=== PATIENT | male | born 1970 | race Hispanic/Latino ===

== ENCOUNTER 2018-03-22 04:24 | Emergency (ER) | payer SELFPAY ==
[2018-03-22 04:56] VITALS: BP 165/96
[2018-03-22 05:21] LABS: Basophils # (Auto) 0.1 K/mm3 (0.0-0.1); Basophils % (Auto) 1.1 % (0.0-1.8); Eosinophils % (Auto) 0.2 % (0.0-4.3); Hematocrit 40.7 % (35.5-45.6); Hemoglobin 13.8 gm/dl (11.8-15.2); Lymphocytes % (Auto) 15.5 % (13.4-35.0); Mean Corpuscular HGB Conc 34 % (32-34); Mean Corpuscular Hemoglobin 33 pg (28-32); Mean Corpuscular Volume 98 fl (84-94); Monocytes # (Auto) 0.4 K/mm3 (0.0-0.8); Monocytes % (Auto) 6.5 % (0.0-7.3); Platelet Count 353 K/mm3 (140-440); Red Blood Count 4.16 M/mm3 (3.65-5.03); Red Cell Distribution Width 14.6 % (13.2-15.2)
[2018-03-22 05:36] LABS: BUN/Creatinine Ratio 17; Blood Urea Nitrogen 12 mg/dL (9-20); Calcium 9.4 mg/dL (8.4-10.2); Hemolysis Index 3
== END 2018-03-22 05:00 | disposition left against medical advice (07) ==
LOC: ED 04:24
DX: Z00.8 Encounter for other general examination (principal); Z53.21 Procedure and treatment not carried out due to patient leaving prior to being seen by health care provider
CPT/HCPCS: 36415; 80048; 85025; G0480; 80320

== ENCOUNTER 2018-05-04 08:19 | Emergency (ER) | payer SELFPAY | END 2018-05-04 08:47 | LOC: ED 08:19 | DX: F10.239 Alcohol dependence with withdrawal, unspecified (principal); Z53.21 Procedure and treatment not carried out due to patient leaving prior to being seen by health care provider ==

== ENCOUNTER 2018-10-05 00:55 | Emergency (ER) | payer OTHER ==
[2018-10-05] MEDS ORDERED: DECADRON IM ONE (04:05)
[2018-10-05] MEDS ORDERED: TYLENOL PO ONE (04:05)
--- NOTE | 2018-10-05 04:40 | Emergency Department Report ---
ED Lower Extremity HPI - General Chief Complaint: Back Pain/Injury Stated Complaint: OSTEOARTHRITIS PAIN Time Seen by Provider: 10/05/18 04:05 Source: patient Mode of arrival: Ambulatory Limitations: No Limitations - History of Present Illness Initial Comments: Patient is a 48-year-old white male with a history of osteoarthritis right hip patient presents for acute exacerbation of same tonight pain is 4/10 aching exacerbated with prolonged sitting standing and weightbearing patient has no sorry injury or trauma there is no swelling ecchymosis or deformity patient states he is out of pain medication is on when necessary any NSAIDs for pain patient denies numbness tingling no decreased bowel or bladder function MD Complaint: other (right hip pain acute on chronic ) Onset/Timin -: days(s) Injury: Hip: Right Type of Injury: blunt Place: home Severity: moderate Severity scale (0 -10): 4 Worsens With: weight bearing, movement, palpation Context: other (chronic hip pain ) Associated Symptoms: ambulatory. denies: swelling, numbness, tingling - Related Data Previous Rx's Medication Instructions Recorded Last Taken Type LORazepam [Ativan] 1 mg PO TID PRN #10 tablet 02/18/15 Unknown Rx Acetaminophen [Tylenol Extra 1,000 mg PO QID PRN #30 tablet 10/05/18 Unknown Rx Strength] Cyclobenzaprine [Flexeril] 10 mg PO TID PRN #30 tablet 10/05/18 Unknown Rx Menthol/Camphor [Stuart Buhl 1 applicatio TP QID PRN #1 tube 10/05/18 Unknown Rx Ointment] Allergies Allergy/AdvReac Type Severity Reaction Status Date / Time No Known Allergies Allergy Verified 10/20/14 18:56 ED Review of Systems ROS: Stated complaint: OSTEOARTHRITIS PAIN Other details as noted in HPI Constitutional: denies: chills, fever Eyes: denies: eye pain, eye discharge, vision change ENT: denies: ear pain, throat pain Respiratory: denies: cough, shortness of breath, wheezing Cardiovascular: denies: chest pain, palpitations Endocrine: no symptoms reported Gastrointestinal: denies: abdominal pain, nausea, diarrhea Genitourinary: denies: urgency, dysuria Musculoskeletal: arthralgia (right hip ) Skin: denies: rash, lesions Neurological: denies: headache, weakness, paresthesias Psychiatric: denies: anxiety, depression Hematological/Lymphatic: denies: easy bleeding, easy bruising ED Past Medical Hx - Past Medical History Previous Medical History?: Yes Hx Hypertension: Yes Hx Psychiatric Treatment: Yes (BIPOLAR, DEPRESSION) Additional medical history: DDD - Surgical History Past Surgical History?: Yes Hx Appendectomy: Yes (LAP.) - Social History Smoking Status: Current Every Day Smoker Substance Use Type: Alcohol - Medications Home Medications: Home Medications Medication Instructions Recorded Confirmed Last Taken Type LORazepam [Ativan] 1 mg PO TID PRN #10 tablet 02/18/15 Unknown Rx Acetaminophen [Tylenol Extra 1,000 mg PO QID PRN #30 tablet 10/05/18 Unknown Rx Strength] Cyclobenzaprine [Flexeril] 10 mg PO TID PRN #30 tablet 10/05/18 Unknown Rx Menthol/Camphor [Stuart Buhl 1 applicatio TP QID PRN #1 tube 10/05/18 Unknown Rx Ointment] ED Physical Exam - General Limitations: No Limitations General appearance: alert, in no apparent distress - Head Head exam: Present: atraumatic, normocephalic - Eye Eye exam: Present: normal appearance, PERRL, EOMI Pupils: Present: normal accommodation - ENT ENT exam: Present: normal exam, mucous membranes moist - Neck Neck exam: Present: normal inspection, full ROM. Absent: tenderness, lymphadenopathy, thyromegaly - Respiratory Respiratory exam: Present: normal lung sounds bilaterally. Absent: respiratory distress, wheezes, rhonchi, chest wall tenderness - Cardiovascular Cardiovascular Exam: Present: regular rate, normal rhythm, normal heart sounds. Absent: systolic murmur, diastolic murmur, rubs, gallop - GI/Abdominal GI/Abdominal exam: Present: soft, normal bowel sounds. Absent: distended, tenderness, rebound, bruit, hernia - Rectal Rectal exam: Present: deferred - Extremities Exam Extremities exam: Present: normal inspection, full ROM, tenderness (right hip wtih papotaio), normal capillary refill. Absent: pedal edema, joint swelling, other - Back Exam Back exam: Present: normal inspection, full ROM. Absent: tenderness, CVA tenderness (R), CVA tenderness (L) - Neurological Exam Neurological exam: Present: alert, oriented X3, CN II-XII intact, normal gait, reflexes normal. Absent: motor sensory deficit - Psychiatric Psychiatric exam: Present: normal affect, normal mood - Skin Skin exam: Present: warm, dry, intact, normal color. Absent: rash ED Course Vital Signs 10/05/18 00:57 Temperature 97.4 F L Pulse Rate 102 H Respiratory 18 Rate Blood Pressure 147/71 O2 Sat by Pulse 98 Oximetry ED Lower Extremity MDM - Medical Decision Making This is an acute on chronic episode of right hip osteoarthritis pain plan Decadron as strength Tylenol analgesic balm patient will follow up in 2-3 days with PCP. Patient given referral to [facility] in 2-3 days pt verbalized agreement and understanding of same patient DC'd home in stable condition at this time Critical care attestation.: If time is entered above; I have spent that time in minutes in the direct care of this critically ill patient, excluding procedure time. ED Disposition Clinical Impression: Chronic pain of right hip, Hip pain, right Disposition: [id number]-01 TO HOME OR SELFCARE Is pt being admited?: No Does the pt Need Aspirin: No Condition: Stable Instructions: Arthralgia (ED) Prescriptions: Acetaminophen [Tylenol Extra Strength] 1,000 mg PO QID PRN #30 tablet PRN Reason: pain Cyclobenzaprine [Flexeril] 10 mg PO TID PRN #30 tablet PRN Reason: Muscle Spasm Menthol/Camphor [Stuart Buhl Ointment] 1 applicatio TP QID PRN #1 tube PRN Reason: pain Referrals: TANA HUGGINSDALLAS MD GENESIS [Primary Care Provider] - 3-5 Days Forms: Work/School Release Form(ED) Time of Disposition: 04:51
[2018-10-05 04:59] VITALS: BP 138/91
== END 2018-10-05 04:58 | disposition home or self-care (01) ==
LOC: ED 00:55
DX: M16.11 Unilateral primary osteoarthritis, right hip (principal); G89.29 Other chronic pain; I10 Essential (primary) hypertension; F17.200 Nicotine dependence, unspecified, uncomplicated; Z90.49 Acquired absence of other specified parts of digestive tract
CPT/HCPCS: 96372; 99282; J1100

== ENCOUNTER 2020-11-16 00:42 | Emergency (ER) | payer SELFPAY | END 2020-11-16 02:07 | disposition left against medical advice (07) | LOC: ED 00:42 | DX: R20.0 Anesthesia of skin (principal); Z53.21 Procedure and treatment not carried out due to patient leaving prior to being seen by health care provider ==